=== PATIENT | female | born 1945 | race Caucasian/White ===

== ENCOUNTER → 2018-08-07 | Outpatient (CLI) | payer MEDICARE, BC ==
--- NOTE | 2018-08-07 16:01 | CONS ---
Assessment/Plan Assessment/Plan Hospital Course (Demo Recall) This is a 72-year-old female 14 years status post right total hip arthritis by Dr. De La Fuente. She is presented today with greater trochanteric bursitis and ischial tuberosity bursitis on the right side. X-rays today show very minimal amount of eccentric wear otherwise the prosthesis looks great. At this time I would like to initiate conservative therapy for the bursitis. Given her multiple medical problems and like her PCP to give the okay and prescribed meloxicam. Today prescribed her Voltaren gel as well as physical therapy. I would like the patient follow-up in 3 months. If she is feeling great she can call us and cancel the appointment. At the very least I would like to see her annually for annual surveillance of her right total hip arthroplasty. Consultation Date/Type/Reason Admit Date/Time Date of Consultation: Aug 07, 2018 Reason for Consultation Right hip and buttock pain Date/Time of Note DATE: 08/07/18 TIME: 15:51 Hx of Present Illness This is a 72-year-old female presented to my clinic today for right hip and buttock pain. She is status post right total hip arthro[place] [address] De La Fuente. She did well for many years until 2014 when she developed a greater trochanteric bursitis. At that time Dr. De La Fuente treated her with a steroid injection. She said it helped significantly and she did well. Over the last several months she has had mild to moderate and increasing pain on the lateral aspect of her hip as well as in her buttock. She denies any groin pain. Denies any difficulty moving her hip. She is rating her pain 8/10. It is painful for her to sit on hard surfaces as well as lie on her right side at night. Sometimes she feels popping on the lateral aspect of her hip. Also states she has burning pain that does radiate down her leg. Lying down her left side of the pillow between her knees does help her pain. She has been using ice as well. She can walk approximately 1 block before the pain increases. She limps on occasion. Patient denies fever, chills, shortness of breath, chest pain, nausea/vomiting, constipation, diarrhea, numbness, and tingling. Past Medical History GERD Asthma Hypertension Hyperlipidemia History of leg calf Perthes Past Surgical History Right total hip arthroplasty [address] De La Fuente Hysterectomy Laparoscopic Partial colectomy Mastectomy Arthroscopic left shoulder surgery Cholecystectomy Excision of squamous cell carcinoma Angioplasty Social History Alcohol Use: none Smoking Status: Former smoker Drug Use: none Exam/Review of Systems Exam Vitals Weight: 200 pounds Height: 5 feet 6 inches Temperature: 97.9 Heart Rate: 97 Blood Pressure: 126/60 Respiratory Rate: 12 Additional Comments General: Alert, oriented. Vital signs: Noted on the chart. Heart: Regular rate and rhythm. Lungs: No respiratory distress. No accessory muscle use. Musculoskeletal: Right lower extremity Well developed female in no apparent distress. Gait demonstrates a mild Trendelenburg with antalgic components and no short leg component. Standing, the pelvis is level and supine there is no true leg length discrepancy. There is tenderness over trochanteric bursa, IT band ischial tuberosity, Range of motion: Full range of motion without pain Sitting there is no pelvic obliquity. Minimal to no pain at the extremes of motion of the affected hip. Skin was intact throughout both lower extremities. Sensation intact to light touch in a sural, saphenous, deep peroneal, superficial peroneal, medial and lateral plantar nerve distribution. Neurovascular exam showed 5/5 strength in the abductors, quads, EHL/tibialis anterior/gastroc. Normal and symmetrical pulses were palpated in both the dorsalis pedis and posterior tibial arteries. There is no sign of venous stasis. Imaging Imaging Xrays obtained in clinic today and personally reviewed by myself: AP pelvis and AP/Lat of the right hip demonstrate hip s/p ANGELA with hip reduced. Components in good position and alignment. There are very subtle signs of eccentric wear of the poly. No osteolysis, loosening, component failure, or fracture. No acute complications. JEANNINE QURESHI MD Aug 07, 2018 16:01
--- NOTE | 2018-08-08 09:02 | RADRPT ---
PROCEDURE: XR right Hip. CLINICAL INDICATION: Hip pain. TECHNIQUE: AP and frog leg lateral views of the right hip were obtained. COMPARISON: 03/15/2015 FINDINGS: There are postoperative changes of total right hip arthroplasty. The hardware is intact and well alig jorge. There is no focal periprosthetic osteolysis. There is diffusely decreased osseous mineralization . No acute fracture or osseous lesion is identified. Moderate degenerative changes are seen at the sa croiliac joints and pubic symphysis. Mild degenerative changes are seen at the left hip. IMPRESSION: 1. Stable postoperative changes of total right hip arthroplasty. RPTAT: AAEE Physician Deisi Date Time Electronically viewed and signed by Physician Deisi on 08/08/2018 09:02 RF/
== END | disposition home or self-care (01) ==
LOC: HKI 14:13
PROVIDERS: ATTEND Orthopaedic Surgery Adult Reconstructive Orthopaedic Surgery
DX: M70.61 Trochanteric bursitis, right hip (principal); I10 Essential (primary) hypertension; E78.5 Hyperlipidemia, unspecified; K21.9 Gastro-esophageal reflux disease without esophagitis; J45.909 Unspecified asthma, uncomplicated; Z90.710 Acquired absence of both cervix and uterus; Z96.641 Presence of right artificial hip joint
CPT/HCPCS: 73502; G0463